=== PATIENT | female | born 1995 | race African-American/Black ===

== ENCOUNTER 2022-05-05 11:42 | Emergency (ER) | payer SELFPAY ==
[2022-05-05] MEDS ORDERED: Acetaminophen 325 MG TAB ONE (14:44)
[2022-05-05] MEDS ORDERED: Ondansetron ODT 4 MG TAB ONE (14:44)
[2022-05-05] MEDS ORDERED: Ketorolac Tromethamine 30 MG/ML VIAL ONE (14:45)
== END 2022-05-05 17:49 | disposition home or self-care (01) ==
LOC: CSHERS 11:42
DX: U07.1 COVID-19 (principal); J12.82 Pneumonia due to coronavirus disease 2019
CPT/HCPCS: 71045; 87081; 87430; 87804; 96372; J1885; Q0162; U0003; U0005